=== PATIENT | female | born 1975 | race Two or more races ===

== ENCOUNTER 2017-07-30 23:56 | Emergency (ER) | payer MEDICAID ==
[~2017-07-30] VITALS: Ht 157.5 cm; Wt 85.0 kg
[~2017-07-30 23:56] MED LIST: CITA20TA9 PO; ESTR2TAB PO
[2017-07-31] MEDS ORDERED: LORazepam 1MG TABLET ONE (01:25)
[2017-07-31] MEDS ORDERED: LORazepam 1MG TABLET PO ONE (01:30)
[2017-07-31] MEDS ORDERED: FLUO20CA8 PO (01:30)
[2017-07-31] MEDS ORDERED: LAMO100T5 PO (01:30)
[2017-07-31 01:47] LABS: ALBUMIN 3.9 g/dL (3.4-5.0); ANION GAP 10 mmol/L (5-15); CALCIUM 9.1 mg/dL (8.5-10.1); CHLORIDE 103 mmol/L (98-107); CREATININE 0.81 mg/dL (0.55-1.02)
[2017-07-31 01:50] LABS: TROPONIN I < 0.015 ng/mL (0.000-0.045)
[2017-07-31 01:53] LABS: BASOPHILS # (AUTO) 0.05 x10^3/uL (0-0.1); BASOPHILS % (AUTO) 1 % (0-1); EOSINOPHILS # (AUTO) 0.03 x10^3/uL (0-0.4); EOSINOPHILS % (AUTO) 0 % (1-7); LYMPHOCYTES # (AUTO) 2.65 x10^3/uL (1-3.4); LYMPHOCYTES % (AUTO) 32 % (22-44); MD NO; MEAN CORPUSCULAR HEMOGLOBIN 30.4 pg (27.0-34.8); MEAN CORPUSCULAR HGB CONC 33.7 g/dL (32.4-35.8); MEAN CORPUSCULAR VOLUME 90.1 fL (80-100); MEAN PLATELET VOLUME 7.1 fL (7.4-10.4); MONOCYTES # (AUTO) 0.58 x10^3/uL (0.2-0.8); MONOCYTES % (AUTO) 7 % (2-9); NEUTROPHILS # (AUTO) 4.99 x10^3/uL (1.8-6.8); NEUTROPHILS % (AUTO) 60 % (42-75); PLATELET COUNT 432 x10^3/uL (130-400); RED BLOOD COUNT 4.49 x10^6/uL (3.82-5.3); RED CELL DISTRIBUTION WIDTH 13.5 % (9.6-15.2)
[2017-07-31] MEDS ORDERED: POTASSIUM CHLORIDE 20 MEQ TAB.ER.PRT PO ONE (02:00)
[2017-07-31] MEDS ORDERED: POTASSIUM CHLORIDE 20 MEQ TAB.ER.PRT ONE (02:01)
[2017-07-31 02:04] VITALS: BP 122/80
== END 2017-07-31 02:42 | disposition home or self-care (01) ==
LOC: ED 23:58
DX: F41.1 Generalized anxiety disorder (principal); R07.9 Chest pain, unspecified; F31.9 Bipolar disorder, unspecified
CPT/HCPCS: 36415; 71045; 80048; 82040; 84484; 85025; 93005; 99285